=== PATIENT | female | born 1990 | race Hispanic/Latino ===

== ENCOUNTER 2017-02-18 00:13 | Emergency (ER) | payer OTHER ==
[~2017-02-18] VITALS: Ht 162.6 cm; Wt 81.8 kg
[~2017-02-18 00:13] MED LIST: HYDR1TAB90 PO; Prenatal Vitamins PO
[2017-02-18 00:57] VITALS: BP 124/66; PULSE 94; RESP 18; O2SAT 100
--- NOTE | 2017-02-18 01:11 | ED.REPORT ---
HPI-General Illness Date of Service Feb 18, 2017 ED Provider: Abhishek Del Rio MD Patient is a 26 year old female who presents to the ED complaining of intermittent shortness of breath onset 5 days ago. Associated symptoms include feeling lightheaded during that time, chest tightness and shaking hands. She denies fever, chills or cough. The patient reports that she feels as though she can't catch her breath for a few minutes and during that times she feels anxious. Patient denies long periods of traveling. She states that a few weeks ago she was waking up in her sleep trying to catch her breath and she has a scheduled appointment for sleep apnea testing. Nursing Notes Stated Complaint: DIFFICULTY BREATHING,FAST HEART RATE,SHAKEY HANDS Chief Complaint: Respiratory Complaints Nursing Notes Reviewed: Yes Allergies: Coded Allergies: No Known Allergies (Verified , 04/07/06) Scheduled ([ Vitamins]) 1 TAB PO DAILY Scheduled PRN Hydrocodone Bit/Acetaminophen (Anexsia 5/325 Mg Tablet) 1 Tab Tablet 1 TAB PO Q6 PRN PRN General Time Seen by MD: 00:55 Chief Complaint Breathing problem Hx Obtained From: Patient Arrived By: Walk-in Sudden in Onset?: Yes Onset Occurred: 5 days ago Symptom Duration: Intermittent Location: : Chest Quality: Pressure Radiation: : Does not radiate Severity: Current: No pain currently Similar Sx Previous: No Past Medical History Past Medical History none reported Past Surgical History none reported Smoking History Never Smoker Social History Alcohol Use: Denies alcohol use Drug Use: Denies drug use Ambulatory Status Independent Review of Systems Full Review of Systems Constitutional: Denies: Chills, Fever Respiratory: Reports: Shortness of breath, Denies: Non-productive cough Cardiovascular: Reports: Chest pain Musculoskeletal: Denies: Extremity swelling Skin: Denies Itching, Denies Rash Neurologic: Reports: Lightheaded, Denies: Numbness, Weakness Psychiatric: Reports: Anxiety Complete sys rev & neg: except as marked. Physical Exam Vital Signs Vital Signs Date Time Temp Pulse Resp B/P Pulse Ox O2 Delivery O2 Flow Rate FiO2 02/18/17 02:13 93 16 120/64 99 Room Air 02/18/17 00:57 36.8 94 18 124/66 100 Initial VS: Reviewed General/Constitutional: Awake, Alert, No acute distress Head / Eyes: Atraumatic, Normocephalic, PERRL, EOMI Neck: Atraumatic, Supple Respiratory / Chest: Atraumatic, Breath sounds NL, Breath sounds = bilat, No respiratory distress, No rales, No rhonchi, No wheezing, No chest tenderness Cardiovascular: Regular rhythm, Heart sounds NL, No gallop, No murmurs, No rubs Heart Rate / Rhythm: Positive: Tachycardia Abdomen: Atraumatic, Soft, Non-tender, No distention Upper Extremities Upper Extremity / MS: Atraumatic, Full range of motion Lower Extremity / Pelvis / MS: Atraumatic, Non-tender, No edema Skin: Atraumatic, Color NL, No rash, Warm, Dry Neurologic: Oriented X3, Speech NL Psychiatric: Affect NL, Mood NL Interpretation & Diagnostics Lab Results Interpretation Result Diagram: 02/18/17 0127 02/18/17 0127 Test 02/18/17 01:10 02/18/17 01:27 Hold Urine Received (Received) White Blood Count 12.1th/mm3 (3.8-10.1) Red Blood Count 4.59mil/mm3 (3.90-5.20) Hemoglobin 12.9g/dL (12.0-15.6) Hematocrit 37.7% (35.0-46.0) Mean Corpuscular Volume 82.1fL (81-100) Mean Corpuscular Hemoglobin 28.1pg (27.0-35.0) Mean Corpuscular Hemoglobin Concent 34.2% (32.0-37.0) Red Cell Distribution Width 13.1% (12.3-15.4) Platelet Count 254bil/L (150-400) Neutrophils (%) (Auto) 54.9% (40-74) Lymphocytes (%) (Auto) 30.0% (14-46) Monocytes (%) (Auto) 10.6% (4-12) Eosinophils (%) (Auto) 4.2% (0-5) Basophils (%) (Auto) 0.2% (0-3) D-Dimer < 0.50mg/L FEU (<0.50) Sodium Level 139mEq/L (134-144) Potassium Level 3.2mEq/L (3.5-5.2) Chloride Level 101mEq/L (97-108) Carbon Dioxide Level 24mmol/L (18-29) Blood Urea Nitrogen 20mg/dL (6-20) Creatinine 0.56mg/dL (0.57-1.00) Estimat Glomerular Filtration Rate 186mL/min (>59) Glucose Level 107mg/dL (60-99) Calcium Level 9.2mg/dL (8.5-10.1) Hold Smith Top Tube Received (Received) ECG Interpretation ECG Interpretation: sinus tachycardia, rate 102 normal axis normal intervals no ST segment elevation no acute T wave abnormalities Time: 01:15 Interpreted by: ED physician X-Ray Chest Interpretation Chest Xray Interpretation: no pneumothorax, no focal consolidations, unremarkable 2 view View: Portable Interpretation / Wet Read by: Wet read ED physician Re-Eval/Medical Decision Med Decision/Clinical Course Patient is a 26 year old female who presents to the ED complaining of intermittent shortness of breath onset 5 days ago. Associated symptoms include feeling lightheaded during that time, chest tightness and shaking hands. She denies fever, chills or cough. The patient reports that she feels as though she can't catch her breath for a few minutes and during that times she feels anxious. Patient denies long periods of traveling. She states that a few weeks ago she was waking up in her sleep trying to catch her breath and she has a scheduled appointment for sleep apnea testing. Upon arrival in the emergency department the patient was borderline tachycardic though otherwise afebrile and hemodynamically stable. She was in no apparent distress. She did seem somewhat anxious. Chest X-ray: no pneumothorax, no focal consolidations, unremarkable 2 view Labs: mild leukocytosis of 12.1, other CBC unremarkable CMP notable for hypokalemia of 3.2, otherwise unremarkable D-Dimer negative No major risk factors for pulmonary embolism. No physical exam findings suggestive of DVT. D-dimer negative. Further workup for pulmonary embolism not indicated at this time. No evidence of pneumonia or pneumothorax. Overall presentation seems most consistent with mild musculoskeletal pain others clearly component of panic and anxiety as well. Tachycardia resolved in the emergency department and patient reported feeling better. She will follow-up with her primary care physician. Prior to discharge follow-up and return precautions were reviewed in detail with the patient who verbalized understanding and agreement with the plan. The patient was discharged in stable condition. Time of Eval: 02:12 Re-Evaluation/Progress Note: Discussed results and plan for discahrge. Patient understands and agrees to plan. All questions were addressed. Counseled Regarding: Diagnosis, Lab results, Need for follow-up, When/why to return to ED Discharge & Departure Primary Impression: Shortness of breath Additional Impressions: Tachycardia Chest pain Chest pain type: chest pain on breathing Qualified Code: R07.1 - Chest pain on breathing Disposition: Home Discharge Condition All VS Reviewed: Yes Condition: Stable Patient Instructions: Shortness of Breath (ED) Additional Instructions: Thank you for seeking care at the emergency room. It is difficult for us to make definitive diagnoses in the ED. Our primary goal today in the Emergency Department was to evaluate you for any life-threatening conditions. Your evaluation was reassuring. You should follow-up with your primary doctor in the next week for further evaluation. You should return to the Emergency Department immediately if you develop fevers , vomiting, cough, chest pain, weakness or any other concerning signs or symptoms. Thank you for letting us partake in your care today. Referrals: Shannon Rosales MD (PCP) Dina Attestation Portions of this note were transcribed by Nicole Horne. I, Dr. Del Rio personally performed the history, physical exam and medical decision-making; I reviewed and confirmed the accuracy of the information in the transcribed note. Signed by: Dina Lyn, 02/17/17 copies to: Shannon Rosales MD, Beck O MD Feb 18, 2017 01:11 Josy Horne Feb 18, 2017 01:19
[2017-02-18 01:38] LABS: BASOPHILS % (AUTO) 0.2 % (0-3); EOSINOPHILS % (AUTO) 4.2 % (0-5); MONOCYTES % (AUTO) 10.6 % (4-12); Mean Corpuscular Hemoglobin 28.1 pg (27.0-35.0); Mean Corpuscular Volume 82.1 fL (81-100); NEUTROPHILS % (AUTO) 54.9 % (40-74); Platelet Count 254 bil/L (150-400)
[2017-02-18 02:13] VITALS: BP 120/64; PULSE 93; RESP 16; O2SAT 99
[2017-02-18 02:35] VITALS: BP 120/64; PULSE 93; RESP 16; O2SAT 99
--- NOTE | 2017-02-18 08:09 | DRSVH ---
PROCEDURE: X-RAY CHEST, TWO VIEWS ([id number]) INDICATIONS: sob TECHNIQUE: 2 views of the chest were acquired. COMPARISON: None. FINDINGS: Surgical changes and devices: None. Lungs and pleura: No pleural effusions or pneumothorax. Lungs are clear. Mediastinum: Mediastinal contours are normal. Heart size is normal. Bones and chest wall: No suspicious bony abnormalities. Soft tissues appear unremarkable. IMPRESSION: No acute cardiopulmonary findings. Dictated by: Anahi Ambrocio M.D. on 02/18/2017 at 8:07 Approved by: Anahi Ambrocio M.D. on 02/18/2017 at 8:07
== END 2017-02-18 02:35 | disposition home or self-care (01) ==
LOC: SED 00:13
DX: R06.02 Shortness of breath (principal); R07.1 Chest pain on breathing; R00.0 Tachycardia, unspecified

== ENCOUNTER 2017-02-20 20:21 | Emergency (ER) | payer OTHER | END 2017-02-20 21:38 | disposition left against medical advice (07) | LOC: SED 20:21 | DX: Z53.21 Procedure and treatment not carried out due to patient leaving prior to being seen by health care provider (principal) ==